=== PATIENT | male | born 1990 | race Caucasian/White ===

== ENCOUNTER 2018-10-15 01:22 | Outpatient (CLI) | payer OTHER, SELFPAY ==
--- NOTE | 2018-10-15 08:59 | DI.CT_ITS ---
SYMPTOM/DIAGNOSIS: SPRAIN OF STERNOCLAVICULAR JOINT, S23.40A STERNOCLAVICULAR JOINT CT: The exam was performed to evaluate the sternoclavicular joints. No fracture is identified. There is no visible widening of the sternoclavicular joints. The AC joints also appear intact. No hematomas are seen. The upper lobes appear clear. The thyroid is normal in size. The visualized portions of the spine are unremarkable. IMPRESSION: Negative CT of the sternoclavicular joints.
--- NOTE | 2018-10-15 09:39 | DI.MRI_ITS ---
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 There are no plain films for comparison. There is no spurring at the AC joint. The rotator cuff tendons appear intact. The marrow signal is normal. There are no gross labral defects. IMPRESSION: Negative MRI of the right shoulder.
== END 2018-10-15 01:42 ==
PROVIDERS: Visit Provider Physician Assistant Surgical
DX: S43.61XA Sprain of right sternoclavicular joint, initial encounter (principal); M75.101 Unspecified rotator cuff tear or rupture of right shoulder, not specified as traumatic; M25.811 Other specified joint disorders, right shoulder
CPT/HCPCS: 71250; 73221